=== PATIENT | female | born 1985 | race Caucasian/White ===

== ENCOUNTER 2018-02-13 22:40 | Emergency (ER) | payer SELFPAY ==
[2018-02-13] MEDS ORDERED: LIDOCAINE 1% 20 ML MDV ONE (23:17)
[2018-02-13] MEDS ORDERED: BUPIVACAINE 0.5% PF 10 ML VIAL ONE (23:47)
[2018-02-13] MEDS ORDERED: LIDOCAINE 1% W/EPI 1:100,000 MDV 50 ML VIAL ONE (23:59)
[2018-02-14] MEDS ORDERED: IBUPROFEN 400 MG TAB ONE (00:04)
--- NOTE | 2018-02-14 00:58 | ER ---
Nurse's Notes [facility] Name: Angely Shay Age: 32 yrs Sex: Female : 1985 Arrival Date: 02/13/2018 Time: 22:45 Bed 8 Private MD: Diagnosis: Laceration without foreign body of left hand Presentation: 02/13 22:47 Presenting complaint: Patient states: [place] fell [place] a [place], lp1 laceration to palm of left hand. Transition of care: patient was not received from another setting of care. Complicating Factors: There are no complicating factors for this patient. Onset of symptoms was February 13, 2018 at 22:15. Care prior to arrival: None. 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 - Social history:: Smoking status: Patient/guardian denies using tobacco. Screenin:49 Abuse screen: Denies threats or abuse. Denies injuries from another. Nutritional lp1 screening: No deficits noted. Tuberculosis screening: No symptoms or risk factors identified. Fall Risk None identified. Assessment: 22:58 General: Appears in no apparent distress. comfortable, Behavior is calm, cooperative, tl2 appropriate for age. Pain: Complains of pain in left hand, tailbone Pain currently is 5 out of 10 on a pain scale. Neuro: Level of Consciousness is awake, alert, obeys commands, Oriented to person, place, time, situation. Cardiovascular: Denies chest pain. Respiratory: Airway is patent Respiratory effort is even, unlabored, Respiratory pattern is regular, symmetrical. Derm: Skin is pink, warm \T\ dry. Wound noted palm of left hand. Musculoskeletal: Circulation, motion, and sensation intact. Injury Description: Laceration sustained to palm of left hand is clean, jagged, 2.6 to 7.5 cm long, bleeding moderately, was sustained 30-60 minutes ago. is bleeding moderately. 02/14 00:42 Reassessment: pt refused urine sample. stated that she has had a tubal for 10 years. PA tl2 notified. 01:22 Reassessment: Patient appears in no apparent distress at this time. Patient and/or tl2 family updated on plan of care and expected duration. Pain level reassessed. Patient is alert, oriented x 3, equal unlabored respirations, skin warm/dry/pink. Pt verbalized understanding of discharge instructions, need for follow up, wound care and prescription usage. Vital Signs: 02/13 22:47 BP 147 / 83; Pulse 102; Resp 18; Temp 99.0(TE); Pulse Ox 99% on R/A; Weight 81.65 kg; lp1 Height 5 ft. 6 in. (167.64 cm); Pain 4/10; 02/14 01:22 BP 133 / 81; Pulse 92; Resp 18; Pulse Ox 96% on R/A; tl2 02/13 22:47 Body Mass Index 29.05 (81.65 kg, 167.64 cm) lp1 ED Course: 02/13 22:45 Patient arrived in ED. es 22:47 Triage completed. lp1 22:47 Arm band placed on right wrist. lp1 22:51 Alee Mansfield, FLY is Primary Nurse. tl2 22:58 Patient has correct armband on for positive identification. Bed in low position. Call tl2 light in reach. Side rails up X 1. Adult w/ patient. 23:14 Everett Rashid PA is PHCP. cp 23:14 Edi White MD is Attending Physician. cp 23:45 X-ray completed. Portable x-ray completed in exam room. Patient tolerated procedure jw2 well. 02/14 00:30 Assist provider with laceration repair on palm of left hand that was between 2.6 to 7.5 tl2 cm using sutures. Set up tray. Performed by Everett CLARK Dressed with 4X4s, Kerlix, Neosporin, Patient tolerated well. Patient did not have IV access during this emergency room visit. Administered Medications: 02/13 23:48 Drug: Ibuprofen 800 mg Route: PO; tl2 02/14 01:21 Follow up: Response: No adverse reaction; Pain is decreased tl2 00:41 Drug: Lidocaine-Epinephrine -1%: (1:100,000) 5 ml Volume: 20 ml; Route: Infiltration; tl2 00:41 Drug: Marcaine (0.5 %) 5 ml Volume: 10 ml; Route: Infiltration; tl2 01:21 Drug: Tylenol #3 (300 mg-30 mg) 1 tablet Route: PO; tl2 01:21 Follow up: Response: No adverse reaction; Medication administered at discharge. tl2 01:21 Drug: Ciprofloxacin 500 mg Route: PO; tl2 01:21 Follow up: Response: No adverse reaction; Medication administered at discharge. tl2 01:21 Drug: Doxycycline 100 mg Route: PO; tl2 01:22 Follow up: Response: No adverse reaction; Medication administered at discharge. tl2 Outcome: 00:30 Discharged to home ambulatory, with friend. tl2 00:30 Condition: stable 00:30 Discharge instructions given to patient, Instructed on discharge instructions, follow up and referral plans. no driving heavy equipment, medication usage, wound care, Demonstrated understanding of instructions, follow-up care, medications, wound care, Prescriptions given X 3. 00:58 Discharge ordered by . cp 01:26 Patient left the ED. tl2 Signatures: Gregoria Malcolm Laura, RN RN lp1 Everett Rashid PA PA cp Wailes, Jenni jw2 Alee Mansfield RN RN tl2
--- NOTE | 2018-02-14 00:58 | EDPHYS ---
Physician Documentation [facility] Name: Angely Shay Age: 32 yrs Sex: Female : 1985 Arrival Date: 02/13/2018 Time: 22:45 Bed 8 Private MD: ED Physician Edi White HPI: 02/13 23:28 This 32 yrs old Female presents to ER via Ambulatory with complaints of cp Laceration To Hand. 23:28 The patient has a laceration occurred beach, patient reports fall onto rock while night cp fishing this evening. The laceration(s) is(are) located on the palm of left hand. Associated signs and symptoms: Pertinent negatives: deformity, heavy bleeding, numbness distal to injury. 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 - Social history:: Smoking status: Patient/guardian denies using tobacco. ROS: 23:30 Constitutional: Negative for body aches, chills, fever, poor PO intake. cp 23:30 Eyes: Negative for injury, pain, redness, and discharge, ENT: Negative for injury, cp pain, and discharge, Cardiovascular: Negative for chest pain, palpitations, and edema, Respiratory: Negative for shortness of breath, cough, wheezing, and pleuritic chest pain, Abdomen/GI: Negative for abdominal pain, nausea, vomiting, diarrhea, and constipation. 23:30 Skin: Positive for laceration(s), of the palm of left hand, Negative for cellulitis, rash. 23:30 Neuro: Negative for altered mental status, headache, numbness, weakness. 23:30 All other systems are negative. Exam: 23:33 Constitutional: The patient appears in no acute distress, alert, awake, non-toxic, well cp developed, well nourished. 23:33 Head/Face: Normocephalic, atraumatic. cp 23:33 Eyes: Periorbital structures: appear normal, Conjunctiva: normal, no exudate, no injection, Lids and lashes: appear normal, bilaterally. 23:33 ENT: External ear(s): are unremarkable, Nose: is normal, Posterior pharynx: is normal, airway is patent. 23:33 Chest/axilla: Inspection: normal. 23:33 Cardiovascular: Rate: tachycardic, Rhythm: regular. 23:33 Respiratory: the patient does not display signs of respiratory distress, Respirations: normal, no use of accessory muscles, no retractions, no splinting, no tachypnea, labored breathing, is not present. 23:33 Abdomen/GI: Exam negative for discomfort, distension, guarding, Inspection: abdomen appears normal. 23:33 Skin: injury, laceration(s), the wound is approximately 5 cm(s), of the palm of left hand hyperthenar eminence, that can be described as no foreign body, linear, with mild bleeding. 23:33 Neuro: Motor: is normal, Sensation: no obvious gross deficits. Vital Signs: 22:47 BP 147 / 83; Pulse 102; Resp 18; Temp 99.0(TE); Pulse Ox 99% on R/A; Weight 81.65 kg; lp1 Height 5 ft. 6 in. (167.64 cm); Pain 4/10; 02/14 01:22 BP 133 / 81; Pulse 92; Resp 18; Pulse Ox 96% on R/A; tl2 02/13 22:47 Body Mass Index 29.05 (81.65 kg, 167.64 cm) lp1 Laceration: 00:54 Wound Repair of 5cm ( 2.0in ) subcutaneous laceration to palm of left hand hyperthenar cp eminence. Linear shaped.. Distal neuro/vascular/tendon intact. Anesthesia: Wound infiltrated with 5 mls of Lido/Marcaine. Wound prep: Extensive cleansing by me, Wound irrigation by me, Wound explored moderately. Skin closed with 3 4-0 Prolene using loose closure using simple interupted sutures. Dressed with volar splint, bharat bandage, bacitracin and guaze. Patient tolerated well. MDM: 02/13 23:14 Patient medically screened. cp 02/14 00:56 Differential diagnosis: superficial laceration, tendon injury, vascular injury, open cp fracture. Data reviewed: vital signs, nurses notes, radiologic studies, plain films. Test interpretation: by ED physician or midlevel provider: plain radiologic studies. Counseling: I had a detailed discussion with the patient and/or guardian regarding: the historical points, exam findings, and any diagnostic results supporting the discharge/admit diagnosis, radiology results, the need for outpatient follow up, a hand specialist. Response to treatment: the patient's symptoms have markedly improved after treatment, and as a result, I will discharge patient. 00:57 Special discussion: I discussed in detail with the patient the higher chance of wound cp infection based on his presenting history. 02/13 23:25 Order name: XRAY Hand LEFT 3 View cp 02/13 23:25 Order name: Prolene, Sutures; Complete Time: 00:40 cp 02/13 23:25 Order name: Dressing - Wound; Complete Time: 00:40 cp 02/13 23:25 Order name: Gloves, Sterile; Complete Time: 23:36 cp 02/13 23:25 Order name: Setup Suture Tray; Complete Time: 23:36 cp Administered Medications: 02/13 23:48 Drug: Ibuprofen 800 mg Route: PO; tl2 02/14 01:21 Follow up: Response: No adverse reaction; Pain is decreased tl2 00:41 Drug: Lidocaine-Epinephrine -1%: (1:100,000) 5 ml Volume: 20 ml; Route: Infiltration; tl2 00:41 Drug: Marcaine (0.5 %) 5 ml Volume: 10 ml; Route: Infiltration; tl2 01:21 Drug: Tylenol #3 (300 mg-30 mg) 1 tablet Route: PO; tl2 01:21 Follow up: Response: No adverse reaction; Medication administered at discharge. tl2 01:21 Drug: Ciprofloxacin 500 mg Route: PO; tl2 01:21 Follow up: Response: No adverse reaction; Medication administered at discharge. tl2 01:21 Drug: Doxycycline 100 mg Route: PO; tl2 01:22 Follow up: Response: No adverse reaction; Medication administered at discharge. tl2 Disposition: 02/14/18 00:58 Discharged to Home. Impression: Laceration without foreign body of left hand. - Condition is Stable. - Discharge Instructions: Wound Care, [id number]. - Prescriptions for Cipro 500 mg Oral Tablet - take 1 tablet by ORAL route every 12 hours for 10 days; 20 tablet. Tylenol- Codeine #3 300-30 mg Oral Tablet - take 2 tablets by ORAL route every 6 hours As needed; 15 tablet. Doxycycline Hyclate 100 mg Oral Tablet - take 1 tablet by ORAL route every 12 hours; 20 tablet. - Medication Reconciliation Form, Thank You Letter, Antibiotic Education, Prescription Opioid Use form. - Follow up: Private Physician; When: recommend hand surgeon for wound check next 48 hours; Reason: Wound Recheck. - Problem is new. - Symptoms have improved. Addendum: 02/17/2018 07:08 Co-signature as Attending Physician, Edi White MD I agree with the assessment and w a plan of care. Signatures: Dispatcher [employer] EDMS Reny Rivero RN RN lp1 Evertet Rashid PA PA cp Knox, Taylor, RN RN tl2 Edi White MD MD ne Corrections: (The following items were deleted from the chart) 02/14 00:41 02/13 23:25 Urine Test ordered. cp tl2 02/14 00:42 02/13 23:25 Urine Dipstick-Ancillary ordered. rc 2
[2018-02-14] MEDS ORDERED: CIPROFLOXACIN HCL 500 MG TAB ONE (01:27)
[2018-02-14] MEDS ORDERED: CODEINE 30MG/APAP 300MG TAB ONE (01:28)
[2018-02-14] MEDS ORDERED: DOXYCYCLINE 100 MG CAP PO ONE (01:28)
--- NOTE | 2018-02-14 09:25 | RAD REPORT ---
EXAM DESCRIPTION: RAD -Hand Left 3 View - 02/13/2018 11:47 pm CLINICAL HISTORY: Left hand pain status post injury FINDINGS: No fracture or dislocation is seen. A radiopaque foreign body is not seen
== END 2018-02-14 01:26 | disposition home or self-care (01) ==
LOC: ER 22:40
PROC: 0JQK0ZZ Repair Left Hand Subcutaneous Tissue and Fascia, Open Approach (ICD-10-PCS; principal; 2018-02-14)
DX: S61.412A Laceration without foreign body of left hand, initial encounter (principal); W26.8XXA Contact with other sharp object(s), not elsewhere classified, initial encounter; Y93.89 Activity, other specified; Y92.832 Beach as the place of occurrence of the external cause; Z88.0 Allergy status to penicillin
CPT/HCPCS: 99283